=== PATIENT | male | born 1975 | race Hispanic/Latino ===

== ENCOUNTER 2019-02-17 10:35 | Emergency (ER) | payer OTHER ==
[~2019-02-17] VITALS: Ht 175.3 cm; Wt 88.0 kg
[2019-02-17] MEDS ORDERED: IBUPROFEN 600 MG TAB PO STA (10:48)
[2019-02-17] MEDS ORDERED: TESSALON PERLE100 MG PO (10:56)
[2019-02-17] MEDS ORDERED: NAPROSYN500 MG PO (10:58)
[2019-02-17] MEDS ORDERED: TAMIFLU75 MG PO (10:58)
--- NOTE | 2019-02-17 11:21 | Diagnostic Imaging Report ---
EXAMINATION: PA and lateral views of the chest. COMPARISON: None CLINICAL HISTORY: Cough, fever, chills DISCUSSION: Lungs are well-inflated. Linear opacities in the lung bases left greater than right compatible with subsegmental atelectasis. No consolidation, effusion, or pneumothorax. Cardiomediastinal contour and pulmonary vasculature are within normal limits. No acute osseous abnormality. IMPRESSION: Subsegmental atelectasis in the lung bases. Otherwise, no acute cardiopulmonary abnormality. Signed by: Dr. Luis Eduardo Nguyễn M.D. on 02/17/2019 11:18 AM
[2019-02-17 11:34] VITALS: BP 129/71
== END 2019-02-17 11:44 | disposition home or self-care (01) ==
LOC: FSED 10:35
DX: R50.9 Fever, unspecified (principal); R05 Cough; J11.1 Influenza due to unidentified influenza virus with other respiratory manifestations; J40 Bronchitis, not specified as acute or chronic; B34.9 Viral infection, unspecified
CPT/HCPCS: 71046; 83518; 87400; 99283